=== PATIENT | male | born 1960 | race African-American/Black ===

== ENCOUNTER → 2016-10-20 | Outpatient (CLI) | payer BC, OTHER ==
[~2016-10-20] VITALS: Ht 185.4 cm; Wt 115.7 kg
[~2016-10-20] MED LIST: lisinopril; metformin
== END | disposition home or self-care (01) ==
LOC: CT 07:24
DX: I25.9 Chronic ischemic heart disease, unspecified (principal); I10 Essential (primary) hypertension; R07.89 Other chest pain; E78.2 Mixed hyperlipidemia
CPT/HCPCS: 75571